=== PATIENT | male | born 1960 | race African-American/Black ===

== ENCOUNTER 2024-12-20 16:51 | Emergency (ER) | payer OTHER ==
[~2024-12-20] VITALS: Ht 188 cm; Wt 106.0 kg
[2024-12-20] MEDS ORDERED: CEPH500C PO (19:49)
[2024-12-20] MEDS ORDERED: ACET500T58 PO (19:49)
--- NOTE | 2024-12-20 19:50 | ED.PDOC ---
HPI Comments 64 year old male presents to ER with complaints of laceration to left foot x 1 day. Patient presents VIA EMS, stating a "a heavy bottle" of tequila fell and hit his left foot approximately "3-4 hours" prior to arrival to ER and sustained laceration to left dorsal surface of left foot at that time. He reports 7/10 p ain to left foot without radiation denies use of medications for current symptoms. Patient presents to ER ambulatory on arrival, with steady gait, in no distress and is unsure when his last tetanus shot was. Denies numbness/tingling, foreign body sensation, left ankle pain or any further symptoms/complaints Chief Complaint: Laceration Time Seen by MD: 18:15 Primary Care Provider: UNKNOWN Reviewed Notes: Nurses Notes, Medications, Allergies Allergies: Coded Allergies: NO KNOWN ALLERGIES (Unverified , 12/20/24) Home Meds Active Scripts Acetaminophen (Acetaminophen) 500 Mg Tab, 500 MG PO Q4HPRN, #30 TAB 0 Refills Prov:MARGARETH SMILEY 12/20/24 Cephalexin Monohydrate (Cephalexin) 500 Mg Cap, 1 CAP PO BID for 7 Days, #14 CAP 0 Refills Prov:MARGARETH SMILEY 12/20/24 Information Source: Patient Mode of Arrival: Ambulatory Complexity: Simple Laceration Length (cm): 3 Skin Type: Linear Past Medical History PAST MEDICAL HISTORY: HTN Surgical History: Denies all surgeries Family History Family History: Unknown Social History Smoker: Non-Smoker Alcohol: Denies ETOH Use Drugs: Denies Drug Use Lives In: Home Constitutional: denies: chills, diaphoresis, fatigue, fever, malaise, sweats, weakness, others EENTM: denies: blurred vision, double vision, ear bleeding, ear discharge, ear drainage, ear pain, ear ringing, eye pain, eye redness, hearing loss, mouth pain, mouth swelling, nasal discharge, nose bleeding, nose congestion, nose pain, photophobia, tearing, throat pain, throat swelling, voice changes, others Respiratory: denies: cough, hemoptysis, orthopnea, SOB at rest, shortness of breath, SOB with excertion, stridor, wheezing, others Cardiovascular: denies: chest pain, dizzy spells, diaphoresis, Dyspnea on exertion, edema, irregular heart beat, left arm pain, lightheadedness, palpitations, PND, syncope, others Gastrointestinal: denies: abdomen distended, abdominal pain, blood streaked bowels, constipated, diarrhea, dysphagia, difficulty swallowing, hematemesis, melena, nausea, poor appetite, poor fluid intake, rectal bleeding, rectal pain, vomiting, others Genitourinary: denies: burning, dysuria, flank pain, frequency, hematuria, incontinence, penile discharge, penile sore, pain, testicle pain, testicle swelling, urgency, others Neurological: denies: dizziness, fainting, headache, left sided numbness, left sided weakness, numbness, paresthesia, pre-existing deficit, right sided numbness, right sided weakness, seizure, speech problems, tingling, tremors, weakness, others Musculoskeletal: reports: others (As stated in HPI) Integumetry: reports: others (As stated in HPI) Allergic/Immunocompromised: denies: Difficulty Healing, Frequent Infections, Hives, Itching, others Hematologic/Lymphatic: denies: anemia, blood clots, easy bleeding, easy bruising, swollen glands, others Endocrine: denies: excessive hunger, excessive sweating, excessive thirst, excessive urination, flushing, intolerance to cold, intolerance to heat, unexplained weight gain, unexplained weight loss, others Psychiatric: denies: anxiety, bipolar disorder, depression, hopeless, panic disorder, schizophrenia, sleepless, suicidal, others Physical Exam General Appearance: No Apparent Distress HEENT: PERRL/EOMI Neck: Full Range of Motion, Non-Tender, Normal Respiratory: Chest Non-Tender, Lungs Clear, No Accessory Muscle Use, No Respiratory Distress, Normal Breath Sounds Cardiovascular: No Murmur, No Gallop, Regular Rate/Rhythm Breast Exam: Deferred Gastrointestinal: NOT DONE Genitalia: Deferred Pelvic: Deferred Rectal: Deferred Extremities: Normal capillary refill, Normal range of motion Neurologic: Alert, No Motor Deficits, Normal Affect, Normal Mood, No Sensory Deficits Cerebellar Function: Normal Reflexes: Normal Skin: Dry, Warm Peripheral Pulses: 2+ dorsalis pedis (R), 2+ dorsalis pedis (L), 2+ Radial (R), 2+ Radial (L), 2+ Brachial (R), 2+ Brachial (L) Lymphatic: No Adenopathy Was a procedure done? Was a procedure done?: Yes Sedation Sedation?: No Laceration Repair : Location Left foot Length 3 cm Anesthetic: Lidocaine (1%), Without epi Laceration Repair Prep: Saline, Betadine, by Irrigation (without any signs of foreign body) Laceration Repair Wound Comple: epidermis/dermis repair Laceration Repair: Number of sutures (Total of 4 sutures placed- patient tolerated well without any complication), Size (3-0), Nylon, Simple, Non- adherent gauze Informed consent obtained: Yes Risks, benefits, and alternati: Yes Images 1 - 3 cm laceration noted. Slight TTP/swelling/erythema localized to wound edges. Foreign body/further skin changes noted. Pulses intact. Steady gait appreciated Differential diagnosis Generic Laceration: Fracture, Retained Foriegn Body, Neurovascular Injury X-Ray, Labs, Meds, VS Vital Signs Date Time Temp Pulse Resp B/P (MAP) Pulse Ox O2 Delivery O2 Flow Rate FiO2 12/20/24 20:57 64 16 96 Room Air 12/20/24 20:42 97.9 64 16 147/85 (105) 96 97.9 12/20/24 16:54 98.4 65 18 155/97 98 98.4 Current Medications Medications (Trade) Dose Ordered Sig/Geetha Route Start Time Stop Time Status Last Admin Diphtheria/ Tetanus/Acell Pertussis (Boostrix T-Dap) 0.5 ml ONCE ONCE IM 12/20/24 19:45 12/20/24 19:46 DC 12/20/24 20:08 PATIENT: CEE HADLEYCCT: [id number]: [id number] : 1960 LOC: ER ROOM / BED: / AGE / SEX: 64 / M ADM STATUS: REG ER SERVICE 13 ORDERING PHYSICIAN: MARGARETH SMILEY PROCEDURE(s): LFOOT - L FOOT 3 VIEW XRAY REASON: left foot pain ORDER NUMBER(s): [id number], ACCESSION NUMBER(s): [id number] CLINICAL INDICATION: left foot pain TECHNIQUE: 3 views XY L FOOT 3 VIEW XRAY Comparison: None FINDINGS: No acute fracture or dislocation. 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 Unremarkable soft tissues. IMPRESSION: 1. No acute finding of the left foot. ATED BY: CRYSTAL MONACO MD DICTATED DATE/TIME: 12/20/242127 SIGNED BY: CRYSTAL MONACO MD SIGNED DATE/TIME: 12/20/242127 CC: Left foot x-ray reviewed Tdap 0.5 mL IM ordered Wound cleaning performed at bedside Wound care/cleaning discussed and advised Advised to follow up in two days for wound check Advised to follow up in 10-14 days for removal of sutures Advised to follow up with PCP in 1-2 days Patient verbalized understanding and agreeable with current plan of care Advised to return to ER immediately if symptoms worsen Images Reviewed?: Images reviewed and evaluated by me Time of 1ST Reevaluation: 19:48 Reevaluation 1ST: N/A Patient Education/Counseling: Diagnosis, Treatment, Prognosis, Need For Follow Up Family Education/Counseling: No Family Present Departure 1 Departure Time of Disposition: 20:14 Impression: Primary Impression: Laceration of left foot Qualified Codes: S91.312A - Laceration without foreign body, left foot, initial encounter Disposition: HOME / SELF CARE / HOMELESS Condition: Stable e-Prescriptions Acetaminophen (Acetaminophen) 500 Mg Tab 500 MG PO Q4HPRN, #30 TAB 0 Refills Prov: MARGARETH SMILEY 12/20/24 Cephalexin Monohydrate (Cephalexin) 500 Mg Cap 1 CAP PO BID for 7 Days, #14 CAP 0 Refills Prov: MARGARETH SMILEY 12/20/24 Discharged With: Friend Critical Care Note Critical Care Time?: No Stability Stability form required: No Heart Score Heart Score: Heart Score Response (Comments) Value History N/A 0 EKG N/A 0 Age N/A 0 Risk Factors N/A 0 Troponin N/A 0 Total 0 MARGARETH SMILEY Dec 20, 2024 19:50
[2024-12-20] MEDS: TETANUS-DIPTH-ACEL PERTUSSIS 0.5ML SYR Tdap IM ONE (20:08)
[2024-12-20] MEDS: LIDOCAINE 1% HCL (LOCAL ANESTH.) INJ 20ML MDV ID ONE (20:11)
[2024-12-20 20:42] VITALS: BP 147/85; TEMP 97.9
[2024-12-20 20:57] VITALS: PULSE 64; RESP 16; O2SAT 96
--- NOTE | 2024-12-20 21:31 | DVH ---
CLINICAL INDICATION: left foot pain TECHNIQUE: 3 views XY L FOOT 3 VIEW XRAY Comparison: None FINDINGS: No acute fracture or dislocation. Mild osteoarthrosis of the 1st metatarsophalangeal and interphalang eal joints. Unremarkable soft tissues. IMPRESSION: 1. No acute finding of the left foot.
== END 2024-12-20 21:38 | disposition home or self-care (01) ==
LOC: ER 16:51
DX: S91.312A Laceration without foreign body, left foot, initial encounter (principal); I10 Essential (primary) hypertension; W18.39XA Other fall on same level, initial encounter; Y93.89 Activity, other specified; Y92.89 Other specified places as the place of occurrence of the external cause; Y99.8 Other external cause status
CPT/HCPCS: 12002; 73630; 90471; 90715; 99283; J2003